=== PATIENT | female | born 1955 | race Two or more races ===

== ENCOUNTER 2018-11-09 17:31 | Emergency (ER) | payer BC ==
--- OUTSIDE RECORDS SUMMARY | 2018-11-09 17:36 | XMS REPORT | Continuity of Care Document ---
:1955 External Reference #:[id number] Author Name JacoboNorman ramirez Care Team Providers Name Role Phone Sandra De La Cruz MD Primary Care Physician Unavailable Payers Type Date Identification Numbers Payment Provider Subscriber Effective: 2015 Policy Number: [id number] [employer] Chuyita Henry PayID: [id number] [address] [address] [place] [phone] Effective: 2013 Policy Number: [id number] [employer] Chuyita Henry Expires: 2015 PayID: [id number] [address] [address] [place] [address] Effective: 2011 Policy Number: [id number] [employer] Chuyita Henry Expires: 2013 PayID: [id number] [address] [address] [place] [address] Expires: 2011 Policy Number: [id number] [employer] Chuyita Henry Group Name: Ppo [address] [address] PayID: [id number] [place] [phone] Effective: 2015 Policy Number: [id number] [employer] Rhan Henry Expires: 2015 PayID: [id number] [address] [address] [place] [address] Advance Directives Description No Information Available Problems Date Description Provider Status Onset: 07/26/2011 Iron deficiency anemia Emperatriz Chu N.P. Active Family History Date Family Member(s) Problem(s) Comments : (age 74 Father due to Stomach Years) Cancer : (age 72 Mother due to CHF HTN, Vascular Disease Years) Children 3 1 Son - Healthy age 30 1 Daughter - Healthy age 30 1 Daughter - Healthy age 24 Siblings 8 3 Brothers - Healthy 1 Brother - Multiple Myeloma (53), age 56 3 Sisters - Healthy 1 Sister - DVT, PE, negative clotting disorder work up Social History Type Date Description Comments Sex Unknown Marital Status Occupation Homemaker ETOH Use Currently consumes 0 - 1 per week alcohol Tobacco Use Start: Unknown Patient has never smoked Smoking Status Reviewed: 10/24/18 Patient has never smoked Exercise Type/Frequency Exercises regularly 5 days per week Allergies, Adverse Reactions, Alerts Date Description Reaction Status Severity Comments 07/26/2011 Aspirin upset stomach Active Moderate 07/26/2011 Levaquin sleeplessness,nausea Active Moderate 01/10/2012 Entex rash and itchy Active Moderate Medications Medication Date Status Form Strength Qnty SIG Indications Ordering Provider Tylenol Extra 06/23 Active Tablets 500mg 100ta 2 by mouth bs as needed Varn, N.P. Valtrex 12/31 Active Tablets 1gm 21tab take two B00.2 s tablets by Varn, mouth twice N.P. a day as needed Triamcinolone 11/08 Active Cream 0.1% 15gm apply thin R21 Neri Acetonide film twice Sage, RADIATOR REPAIRER daily Ventolin HFA 11/11 Active Aerosol 108(90Bas 1inha 1 to 2 J45.909 e) ler inhalations Varn, mcg/Act every 4 N.P. hours as needed Mariama 01/09 Active Tablets 180mg 30tab 1 po qd Z00.00 Oralia talia Anderson M.D., [facility] Sudafed 0000 Active as needed Unknown /0000 Afrin 12 Hour 00/00 Active Solution 0.05% 2-3 sprays Unknown /0000 both nares every 12 hours as needed Nasacort 0000 Active Aerosol 55mcg/Act 1 spray both Unknown Allergy 24HR /0000 nares once daily Azithromycin 09/08 Hx Tablets 250mg 6tabs two tabs day J01.00 one, one Varn, - daily till N.P. 09/18 Benzonatate 09/08 Hx Capsules 100mg 30cap one by mouth J01. s three times Varn, - daily as N.P. 09/22 needed for cough Azithromycin 06/23 Hx Tablets 250mg 6tabs two tabs day J20.9 one, one Varn, - daily till N.P. 07/03 Benzonatate 06/23 Hx Capsules 100mg 30cap one by mouth J20.9 s three times Varn, - daily as N.P. 07/03 needed for cough Fluconazole 03/09 Hx Tablets 100mg 6tabs 3 tablets by B36.1 mouth and Varn, - repeat in 1 N.P. Azithromycin 12/31 Hx Tablets 250mg 6tabs two tabs day J01.00 one, one Varn, - daily till N.P. 01/09 Azithromycin 11/08 Hx Tablets 250mg 6tabs 2 tabs by J01.90 Neri mouth every Sage, RADIATOR REPAIRER - day x1 day, 11/15 1 tab by mouth every day x 4 days [id number] DS 04/09 Hx Tablets 800-160mg 14tab 1 tab by s mouth twice Portillo, RADIATOR REPAIRER - a day x 7 Doxycycline 03/25 Hx Capsules 100mg 20cap one tablet Neri s twice daily Sage, RADIATOR REPAIRER - for 10 days. 04/04 Ceftibuten 03/24 Hx Capsules 400mg 10cap 1 capsule 461.9 Neri s once daily x Sage, RADIATOR REPAIRER - 10 days 03/25 Benzonatate 03/17 Hx Capsules 100mg 30cap one by mouth 466.0 Emperatriz /2015 s three times Varn, - daily as N.P. 03/24 needed for cough Azithromycin 03/17 Hx Tablets 250mg 6tabs two tabs day 466.0 one, one Varn, - daily till N.P. 03/24 Azithromycin 07/27 Hx Tablets 250mg 6tabs two tabs day 461.9 Neri one, one Sage, RADIATOR REPAIRER - daily until 08/04 Benzonatate 07/27 Hx Capsules 100mg 30cap one by mouth 461.9 Neri s three times Sage, RADIATOR REPAIRER - daily as 08/04 needed for /2014 cough Denavir 05/14 Hx Cream 1% 30.0u apply three 054.79 nits times daily Varn, - as needed N.P. 03/17 Azithromycin 05/14 Hx Tablets 250mg 6tabs two tabs day 461.9 one, one Varn, - daily until N.P. 05/24 gone Benzonatate 05/14 Hx Capsules 100mg 30cap one by mouth 461.9 s three times Varn, - daily as N.P. 05/28 needed cough Triamcinolone 02/16 Hx Cream 0.1% 30gm apply twice 709.9 Acetonide a day until Varn, - clear N.P. 04/06 Fluticasone 02/09 Hx Suspension 50mcg/Act 16gm 1 inhalation Propionate in each Varn, - nostril, N.P. 09/08 once daily Veramyst 02/06 Hx Suspension 27.5mcg/S 10gm 1 sprays 477.9 pray each nostril Varn, - daily N.P. 02/09 Valtrex 02/06 Hx Tablets 1gm 21tab take two 054.2 s tablets by Varn, - mouth twice N.P. 12/31 a day needed Fluticasone 11/13 Hx Suspension 50mcg/Act 16gm 2 sprays Propionate each nostril Varn, - daily as N.P. 02/06 needed Meclizine HCL 02/03 Hx Tablets 25mg 30tab 1 tablet 386.11 s daily as Varn, - needed N.P. 02/17 Doxycycline 12/23 Hx Capsules 100mg 14cap 1 po bid 682.0 Oralia Monohydrate Gloria Bingham M.D., 12/23 Doxycycline 12/23 Hx Capsules 100mg 14cap bid po 682.0 Oralia Hyclate Gloria Bingham M.D., 02/03 Azithromycin 10/01 Hx Tablets 250mg 6tabs two tabs day 461.9 one, one Varn, - daily till N.P. 10/11 Benzonatate 10/01 Hx Capsules 200mg 30cap one by mouth 461.9 s three times Varn, - daily as N.P. 10/15 needed cough Ventolin HFA 01/09 Hx Aerosol 108(90Bas 1inha 1 to 2 493.90 e) mcg/ac ler inhalations Monica, - every 4 M.D., 11/11 hours as FACP needed Veramyst Hx Suspension 27.5mcg/S 1mon two sprays Oralia / pray in each Monica, - nostril M.D., 02/06 daily. FAC Ipratropium Hx Solution 0.06% 3unit 1 spray to Unknown [place] /0000 s each nostril - twice daily 02/06 Benzonatate Hx Capsules 200mg 30cap take 1 Unknown /0000 s capsule by - mouth three 07/26 times a day /2010 Mariama Allergy 00 Hx Tablets 60mg bid prn po Unknown /0000 - 02/06 Immunizations CPT Code Status Date Vaccine Lot # [id number] Given 08/24/2018 Influenza Virus Vaccine, Quadrivalent, Split, Preservative Free Q2039 Given 08/12/2016 Flu Vaccine NOS Q2039 Given 08/20/2015 Flu Vaccine NOS 51855 Given 08/22/2014 Flu Vaccine Split Virus Preservative Free For Indiv 3Yr Older Q2037 Given 08/30/2013 Fluvirin Im 3Yrs And Older 87464 Given 09/09/2011 Influenza Virus 3Yrs & Over 44619 Given 11/30/2010 Hepatitis B Vaccine Adult Dosage 46364 Given 11/30/2010 Hepatitis A Vaccine Adult Dosage 09787 Given 06/29/2010 Hepatitis B Vaccine Adult Dosage 90307 Given 08/12/2009 Influenza Virus 3Yrs & Over 31460 Given 08/08/2006 Influenza Virus 3Yrs & Over 46425 Given 08/08/2006 Influenza Virus 3Yrs & Over Vital Signs Date Vital Result Comment 10/24/2018 11:17am Height 63 inches 5'3" Weight 140.00 lb Heart Rate 100 /min BP Systolic 130 mmHg BP Diastolic 74 mmHg Body Temperature 97.5 F O2 % BldC Oximetry 98 % BMI (Body Mass Index) 24.8 kg/m2 04/19/2018 3:01pm Height 63 inches 5'3" Weight 140.00 lb Heart Rate 90 /min BP Systolic Sitting 130 mmHg BP Diastolic Sitting 76 mmHg O2 % BldC Oximetry 99 % BMI (Body Mass Index) 24.8 kg/m2 08/24/2017 11:24am Weight 140.00 lb Heart Rate 93 /min BP Systolic 128 mmHg BP Diastolic 70 mmHg Body Temperature 98.0 F O2 % BldC Oximetry 98 % 09/08/2016 2:25pm Weight 138.00 lb Heart Rate 82 /min BP Systolic Sitting 132 mmHg BP Diastolic Sitting 67 mmHg Respiratory Rate 16 /min Body Temperature 98.3 F O2 % BldC Oximetry 99 % 06/23/2016 3:58pm Heart Rate 87 /min BP Systolic Sitting 126 mmHg BP Diastolic Sitting 75 mmHg Body Temperature 98.6 F O2 % BldC Oximetry 99 % 06/19/2016 2:21pm Weight 137.00 lb Heart Rate 97 /min BP Systolic Sitting 120 mmHg BP Diastolic Sitting 70 mmHg Body Temperature 97.9 F O2 % BldC Oximetry 99 % 03/09/2016 11:29am Height 61.5 inches 5'1.50" Weight 136.00 lb Heart Rate 94 /min BP Systolic Sitting 128 mmHg BP Diastolic Sitting 80 mmHg Respiratory Rate 15 /min Body Temperature 98.5 F O2 % BldC Oximetry 99 % BMI (Body Mass Index) 25.3 kg/m2 12/31/2015 1:11pm Weight 135.50 lb Heart Rate 90 /min BP Systolic Sitting 118 mmHg BP Diastolic Sitting 57 mmHg Body Temperature 97.2 F O2 % BldC Oximetry 98 % 11/08/2015 11:27am Weight 134.00 lb Heart Rate 104 /min BP Systolic Sitting 118 mmHg BP Diastolic Sitting 84 mmHg Body Temperature 98.2 F O2 % BldC Oximetry 98 % 04/06/2015 9:33am Height 63 inches 5'3" Weight 138.50 lb Heart Rate 111 /min BP Systolic Sitting 114 mmHg BP Diastolic Sitting 72 mmHg Body Temperature 97.8 F O2 % BldC Oximetry 98 % BMI (Body Mass Index) 24.5 kg/m2 03/24/2015 3:31pm Height 63 inches 5'3" Weight 138.00 lb Heart Rate 83 /min BP Systolic 122 mmHg BP Diastolic 68 mmHg Body Temperature 98.5 F BMI (Body Mass Index) 24.4 kg/m2 03/17/2015 4:32pm Weight 138.00 lb Heart Rate 86 /min BP Systolic Sitting 125 mmHg BP Diastolic Sitting 70 mmHg Body Temperature 97.9 F O2 % BldC Oximetry 97 % 07/27/2014 2:00pm Height 63 inches 5'3" Weight 138.00 lb Heart Rate 94 /min BP Systolic Sitting 130 mmHg BP Diastolic Sitting 70 mmHg Body Temperature 98.4 F O2 % BldC Oximetry 99 % BMI (Body Mass Index) 24.4 kg/m2 05/14/2014 10:27am Height 63 inches 5'3" Weight 135.00 lb Heart Rate 91 /min BP Systolic Sitting 112 mmHg BP Diastolic Sitting 68 mmHg Body Temperature 98.0 F O2 % BldC Oximetry 98 % BMI (Body Mass Index) 23.9 kg/m2 02/16/2014 8:45am Weight 136.75 lb Heart Rate 88 /min BP Systolic 126 mmHg BP Diastolic 64 mmHg Respiratory Rate 16 /min Body Temperature 97.8 F 02/06/2014 11:01am Height 62.75 inches 5'2.75" Weight 137.00 lb Heart Rate 94 /min BP Systolic Sitting 124 mmHg BP Diastolic Sitting 78 mmHg Respiratory Rate 15 /min BMI (Body Mass Index) 24.5 kg/m2 02/03/2013 4:03pm Height 62.5 inches 5'2.50" Weight 139.00 lb Heart Rate 78 /min BP Systolic Sitting 124 mmHg BP Diastolic Sitting 68 mmHg Body Temperature 98.3 F BMI (Body Mass Index) 25.0 kg/m2 12/23/2012 10:04am Height 62.5 inches 5'2.50" Weight 138.00 lb Heart Rate 90 /min Body Temperature 98.3 F Tympanically BMI (Body Mass Index) 24.8 kg/m2 10/01/2012 2:24pm Height 62.5 inches 5'2.50" Weight 139.00 lb Heart Rate 82 /min BP Systolic Sitting 124 mmHg BP Diastolic Sitting 76 mmHg Body Temperature 98.6 F BMI (Body Mass Index) 25.0 kg/m2 01/10/2012 10:55am Height 62.5 inches 5'2.50" Weight 141.00 lb Heart Rate 84 /min BP Systolic Sitting 140 mmHg BP Diastolic Sitting 76 mmHg BMI (Body Mass Index) 25.4 kg/m2 11/24/2011 10:57am Height 62.5 inches 5'2.50" Weight 141.00 lb Heart Rate 74 /min BP Systolic Sitting 122 mmHg BP Diastolic Sitting 68 mmHg BMI (Body Mass Index) 25.4 kg/m2 07/26/2011 2:15pm Height 62.5 inches 5'2.50" Weight 141.00 lb Heart Rate 70 /min BP Systolic Sitting 134 mmHg BP Diastolic Sitting 82 mmHg BMI (Body Mass Index) 25.4 kg/m2 01/02/2011 2:36pm Weight 138.00 lb Heart Rate 84 /min BP Systolic 116 mmHg BP Diastolic 70 mmHg Body Temperature 98.5 F Results Test Date Facility Test Result H/L Range Note Laboratory test 10/24/2018 [facility] Cytology <pending> finding [address] [place] [address] [phone] Urine Culture And 04/19/2018 [facility] Urine Culture SEE RESULT [address] [place] [address] [phone] Ua Routine 04/19/2018 [facility] Ua Specific [address] [place] Ua PH 7 Ua Color yellow Ua Appera clear Ua WBC neg Ua Protein neg Ua Glucose neg Ua Ketones neg Ua Bilirubin neg Ua Urobilinogen neg Ua Nitrite neg Ua Occult Blood neg Comp Metabolic Panel 09/18/2017 [facility] Sodium 137 mmol/L N [address] [place] [address] [phone] Potassium 4.6 mmol/L N 3.5-5.0 Chloride 102 mmol/L N 101-111 Co2 Carbon Dioxide 27 mmol/L N 22-32 Anion Gap 8 mmol/L N 2-11 Glucose 96 mg/dL N 70-100 Blood Urea Nitrogen 18 mg/dL N 6-24 Creatinine 0.84 mg/dL N 0.51-0.95 BUN/Creatinine Ratio 21.4 High 8-20 Calcium 9.3 mg/dL N 8.6-10.3 Total Protein 6.8 g/dL N 6.4-8.9 Albumin 4.3 g/dL N 3.2-5.2 Globulin 2.5 g/dL N 2-4 Albumin/Globulin Ratio 1.7 N 1-3 Total Bilirubin 0.80 mg/dL N 0.2-1.0 Alkaline Phosphatase 82 U/L N 34-104 Alt 22 U/L N 7-52 Ast 22 U/L N 13-39 Egfr Non- 69.2 >60 Egfr 88.9 >60 2 Lipid Profile 09/18/2017 [facility] Triglycerides 76 mg/dL 3 (Trig/Chol/HDL) [address] [place] [address] [phone] Cholesterol 210 mg/dL 4 HDL Cholesterol 91.0 mg/dL 5 LDL Cholesterol 104 mg/dL 6 Laboratory test 09/18/2017 [facility] TSH (Thyroid 1.28 mcIU/mL N 0.34-5.60 7 finding [facility] Stim [place]orm) [place] [address] [phone] Laboratory test 06/19/2016 [facility] Rapid Group A neg finding Strep Laboratory test 03/09/2016 [facility] TSH (Thyroid 0.88 ?IU/mL N 0.34-5.60 finding [facility] [address] [place]) [place] [address] [phone] Rheumatoid Factor <15 IU/mL N <15 8 Cyclic Citrullinated Pep Igg <15.6 U N 9 Comp Metabolic Panel 02/17/2016 [facility] Sodium 138 mmol/L N 133-145 [address] [place] [address] [phone] Potassium 4.2 mmol/L N 3.5-5.0 Chloride 103 mmol/L N 101-111 Co2 Carbon Dioxide 28 mmol/L N 22-32 Anion Gap 7 mmol/L N 2-11 Glucose 90 mg/dL N 70-100 Blood Urea Nitrogen 15 mg/dL N 6-24 Creatinine 0.79 mg/dL N 0.51-0.95 BUN/Creatinine Ratio 19.0 N 8-20 Calcium 8.9 mg/dL N 8.6-10.3 Total Protein 6.4 g/dL N 6.4-8.9 Albumin 4.1 g/dL N 3.2-5.2 Globulin 2.3 g/dL N 2-4 Albumin/Globulin Ratio 1.8 N 1-3 Total Bilirubin 0.70 mg/dL N 0.2-1.0 Alkaline Phosphatase 86 U/L N 34-104 Alt 18 U/L N 7-52 Ast 20 U/L N 13-39 Egfr Non- 74.7 N >60 Egfr 96.1 N >60 10 Lipid Profile 02/17/2016 [facility] Triglycerides 57 mg/dL N 11 (Trig/Chol/HDL) [address] [place] [address] [phone] Cholesterol 193 mg/dL N 12 HDL Cholesterol 84.3 mg/dL N 13 LDL Cholesterol 97 mg/dL N 14 CBC Auto Diff 02/17/2016 [facility] White Blood 3.8 10^3/uL N 3.5-10.[address] [place] [address] [phone] Red Blood Count 4.95 10^6/uL N 4.0-5.4 Hemoglobin 13.7 g/dL N 12.0-16.0 Hematocrit 42 % N 35-47 Mean Corpuscular Volume 85 fL N 80-97 Mean Corpuscular Hemoglobin 28 pg N 27-31 Mean Corpuscular HGB Conc 33 g/dL N 31-36 Red Cell Distribution Width 12 % N 10.5-15 Platelet Count 218 10^3/uL N 150-450 Mean Platelet Volume 8 um3 N 7.4-10.4 Abs Neutrophils 2.0 10^3/uL N 1.5-7.7 Abs Lymphocytes 1.4 10^3/uL N 1.0-4.8 Abs Monocytes 0.3 10^3/uL N 0-0.8 Abs Eosinophils 0.1 10^3/uL N 0-0.6 Abs Basophils 0 10^3/uL N 0-0.2 Abs Nucleated RBC 0 10^3/uL N Granulocyte % 51.9 % N 38-83 Lymphocyte % 36.4 % N 25-47 Monocyte % 8.7 % N 1-9 Eosinophil % 2.4 % N 0-6 Basophil % 0.6 % N 0-2 Nucleated Red Blood Cells % 0.1 N Urinalysis Profile 04/12/2015 Urine Color Yellow N Urine Appearance Cloudy N Urine Specific [place] 1.015 N 1.010-1.030 Urine pH 6.0 N 5-9 Urine Urobilinogen Negative N Negative Urine Ketones Negative N Negative Urine Protein 1+(30 mg/dL) Abnormal Negative Urine Leukocytes Negative N Negative Urine Blood 3+ Abnormal Negative Urine Nitrite Negative N Negative Urine Bilirubin Negative N Negative Urine Glucose Negative N Negative Urine White Blood Cell 1+(6-10/hpf) Abnormal Absent Urine Red Blood Cell 3+(>10/hpf) Abnormal Absent Urine Bacteria Absent N Absent Urine Squamous Epithelial Cell Present Abnormal Absent Urinalysis Profile 04/08/2015 [facility] Urine Color Yellow N [address] [place] [address] [phone] Urine Appearance Clear N Urine Specific [place] 1.012 N 1.010-1.030 Urine pH 6.0 N 5-9 Urine Urobilinogen Negative N Negative Urine Ketones Negative N Negative Urine Protein Negative N Negative Urine Leukocytes Negative N Negative Urine Blood 2+ Abnormal Negative Urine Nitrite Negative N Negative Urine Bilirubin Negative N Negative Urine Glucose Negative N Negative Urine White Blood Cell Trace(0-5/hpf) N Absent Urine Red Blood Cell 3+(>10/hpf) Abnormal Absent Urine Bacteria Absent N Absent Urine Squamous Epithelial Cell Present Abnormal Absent Ua Routine 04/06/2015 [facility] Ua Specific [place] 1.010 Ua PH 5 Ua Color yellow Ua Appera clear Ua WBC neg Ua Protein trace Ua Glucose neg Ua Ketones neg Ua Bilirubin neg Ua Urobilinogen neg Ua Nitrite neg Ua Occult Blood positive Laboratory test 04/06/2015 [facility] Urine Culture And SEE RESULT [address] [place] [address] [phone] Urinalysis 04/06/2015 [facility] Urine Color Yellow N Profile [address] [place] [address] [phone] Urine Appearance Clear N Urine Specific [place] 1.006 Low 1.010-1.030 Urine pH 6.0 N 5-9 Urine Urobilinogen Negative N Negative Urine Ketones Negative N Negative Urine Protein Negative N Negative Urine Leukocytes Negative N Negative Urine Blood 3+ Abnormal Negative Urine Nitrite Negative N Negative Urine Bilirubin Negative N Negative Urine Glucose Negative N Negative Urine White Blood Cell Absent N Absent Urine Red Blood Cell 3+(>10/hpf) Abnormal Absent Urine Bacteria Absent N Absent Urine Squamous Epithelial Cell Present Abnormal Absent Laboratory test finding 02/20/2014 Ferritin 32.6 ng/mL N 11-307 16 TSH (Thyroid Stimulating Horm) 1.05 IU/mL N 0.34-5.60 Hepatitis C Antibody Nonreactive N Nonreactive 17 CBC With Manual Diff 02/20/2014 White Blood Count 4.4 10^3/uL Low 4.8- 10.8 Red Blood Count 4.98 10^6/uL N 4.0-5.4 Hemoglobin 13.9 g/dL N 12.0-16.0 Hematocrit 41 % N 35-47 Mean Corpuscular Volume 82 fL N 80-97 Mean Corpuscular Hemoglobin 28 pg N 27-31 Mean Corpuscular HGB Conc 34 g/dL N 31-36 Red Cell Distribution Width 13 % N 10.5-15 Platelet Count 198 10^3/uL N 150-450 Mean Platelet Volume 8 um3 N 7.4-10.4 Abs Neutrophils 2.4 10^3/uL N 1.5-7.7 Abs Lymphocytes 1.6 10^3/uL N 1.0-4.8 Abs Monocytes 0.4 10^3/uL N 0-0.8 Abs Eosinophils 0.1 10^3/uL N 0-0.6 Abs Basophils 0 10^3/uL N 0-0.2 Abs Nucleated RBC 0.01 10^3/uL N Neutrophil % 56 % N 38-83 Lymphocytes % 30 % N 25-47 Monocytes % 7 % N 0-13 Eosinophils % 1 % N 0-6 Reactive Lymph % 6 % N 0-6 RBC Morphology Normal N Normal Lipid Profile (Trig/Chol/HDL) 02/20/2014 Triglycerides 66 mg/dL N 18 Cholesterol 194 mg/dL N 19 HDL Cholesterol 75.4 mg/dL N 20 LDL Cholesterol 105 mg/dL N 21 Comp Metabolic Panel 02/20/2014 Sodium 139 mmol/L N 133-145 Potassium 4.2 mmol/L N 3.7-5.6 Chloride 104 mmol/L N 101-111 Co2 Carbon Dioxide 28 mmol/L N 22-32 Anion Gap 7 mmol/L N 2-11 Glucose 92 mg/dL N 70-100 Blood Urea Nitrogen 13 mg/dL N 6-24 Creatinine 0.80 mg/dL N 0.51-0.95 BUN/Creatinine Ratio 16.3 N 8-20 Calcium 9.0 mg/dL N 8.6-10.3 Total Protein 6.6 g/dL N 6.4-8.9 Albumin 4.3 g/dL N 3.2-5.2 Globulin 2.3 g/dL N 2-4 Albumin/Globulin Ratio 1.9 N 1-3 Total Bilirubin 0.70 mg/dL N 0.2-1.0 Alkaline Phosphatase 94 U/L N 34-104 Alt 17 U/L N 7-52 Ast 19 U/L N 13-39 Egfr Non- 74.2 N >60 Egfr 95.4 N >60 22 HPV High 02/06/2014 [facility] Human Papillomavirus See Comment N [address] [place] [address] [phone] HPV High Risk Type 16, PCR Negative N Negative HPV High Risk Type 18, PCR Negative N Negative HPV Other Risk types Negative N Negative 24 Laboratory test 02/06/2014 [facility] Cytology RUN DATE: [address] 02/09/ <[place] [address] NOTE> [phone] Laboratory test 01/26/2012 [facility] TSH 1.08 MIU/ML 0.34-[address] [place] [address] [phone] Lipid Profile 01/26/2012 [facility] Triglyceride 55 mg/dL 40- 200 (Trig/Chol/HDL) [address] [place], [place] [id number] [phone] Cholesterol 198 mg/dL Less Than 200 27 High Density Lipoprotein 80 mg/dL High 40-60 28 Cholesterol/HDL Ratio 2.48 AVERAGE 1-4.44 Low Density Lipoprotein 107 mg/dL High Less Than 100 29 Comp Metabolic Panel 01/26/2012 [facility] Sodium 138 mmol/L 135-[address] [place] [address] [phone] Potassium 4.8 mmol/L 3.5-5.0 Chloride 105 mmol/L 101-111 Co2 (Carbon Dioxide) 28.0 mmol/L 22-32 Anion Gap 5.0 mmol/L 2-11 30 Glucose 91 mg/dL 70-100 BUN 13 mg/dL 6-24 Creatinine 0.9 mg/dL 0.50-1.40 One Over Creatinine 1.11 BUN/Creatinine Ratio 14.4 8-20 Calcium 8.8 mg/dL 8.1-9.9 Total Protein 6.4 GM/DL 6.2-8.1 Albumin 3.8 GM/DL 3.6-5.4 Globulin 2.6 GM/DL 2-4 Albumin/Globulin Ratio 1.5 1-3 Bilirubin Total 0.9 mg/dL 0.4-1.5 31 Alkaline Phosphatase 87 U/L 30-110 Alt (SGPT) 17 U/L 14-54 Ast (Sgot) 17 U/L 12-42 eGFR Non- 65.2 > 60 eGFR 83.9 > 60 32 Laboratory test 01/10/2012 [facility] Cytology <SEE [address] NOTE> [place] [id number] [phone] 1 SEE RESULT BELOW Name: GLENYS OCHOA : [address]: Emperatriz Chu NP Acct: [id number] Unit: [id number] AGE: 62 Location: [facility] Re04/19/18 SEX: F Status: REG REF SPEC: [id number] ALEXANDER: 04/19/18-1546 [facility] DR: Emperatriz Chu NP REQ: [id number] RECD: 04/19/18 STATUS: COMP _ SOURCE: URINE SPDESC: ORDERED: Urine Culture COMMENTS: [id number] Urine Source: Random Procedure Result Reported Site Urine Culture Final 04/21/18- 09 ML No Growth (<1,000 CFU/mL) * ML - Main Lab . END OF REPORT DEPARTMENT OF PATHOLOGY, [address] [place] [address] Caio Briseno M.D. Director [facility] # [id number] 2 Because ethnic data is not always readily available, this report includes an eGFR for both -Americans and non- Americans. The National Kidney Disease Education Program (NKDEP) does not endorse the use of the MDRD equation for patients that are not between the ages of 18 and 70, are , have extremes of body size, muscle mass, or nutritional status, or are non- or non-. According to the National Kidney Foundation, irrespective of diagnosis, the stage of the disease is based on the level of kidney function: Stage Description GFR(mL/min/1.73 m(2)) 1 Kidney damage with normal or decreased GFR 90 2 Kidney damage with mild decrease in GFR 60-89 3 Moderate decrease in GFR 30-59 4 Severe decrease in GFR 15-29 5 Kidney failure <15 (or dialysis) 3 Desirable: <150 Borderline High: 150-199 High: 200-499 Very High: >500 4 Desirable: <200 Borderline High: 200-239 High: >239 5 Low: <40 Desirable: 40-60 High: >60 6 Desirable: <100 Near Optimal: 100-129 Borderline High: 130-159 High: 160-189 Very High: >189 7 FASTING 10 HOUR 8 Test Performed by: [place] [address] Bioinformatics Team Member: Tony Chaney II, M.D., Ph.D. 9 REFERENCE VALUE <20.0 (Negative) Test Performed by: [place] [address] Bioinformatics Team Member: Tony Chaney II, M.D., Ph.D. 10 Because ethnic data is not always readily available, this report includes an eGFR for both -Americans and non- Americans. The National Kidney Disease Education Program (NKDEP) does not endorse the use of the MDRD equation for patients that are not between the ages of 18 and 70, are , have extremes of body size, muscle mass, or nutritional status, or are non- or non-. According to the National Kidney Foundation, irrespective of diagnosis, the stage of the disease is based on the level of kidney function: Stage Description GFR(mL/min/1.73 m(2)) 1 Kidney damage with normal or decreased GFR 90 2 Kidney damage with mild decrease in GFR 60-89 3 Moderate decrease in GFR 30-59 4 Severe decrease in GFR 15-29 5 Kidney failure <15 (or dialysis) 11 Desirable <150 Borderline high 150-199 High 200-499 Very High >500 12 Desirable <200 Borderline high 200-239 High >239 13 Low <40 Desirable: 40-60 High: >60 14 Desirable: <100 mg/dL Near Optimal: 100-129 mg/dL Borderline High: 130-159 mg/dL High: 160-189 mg/dL Very High: >189 mg/dL 15 SEE RESULT BELOW Name: GLENYS OCHOA : [address]: Nishant Portillo NP Acct: [id number] Unit: [id number] AGE: 59 Location: [facility] Re04/06/15 SEX: F Status: REG REF SPEC: [id number] ALEXANDER: 04/06/15-[address]: Nishant Portillo NP REQ: [id number] RECD: 04/06/15 STATUS: COMP _ SOURCE: URINE SPDESC: ORDERED: Urine Culture Procedure Result Verified Site Urine Culture Final 04/08/15- 0935 ML No Growth Day 2 (<1,000 CFU/mL) * ML - MAIN LAB ([facility]) . END OF REPORT * ML=Testing performed at Main Lab DEPARTMENT OF PATHOLOGY, [address] [place] [address] Caio Briseno M.D. Director [facility] # [id number] 16 PT IS FASTING 17 PT IS FASTING 18 Desirable <150 Borderline high 150-199 High 200-499 Very High >500 19 Desirable <200 Borderline high 200-239 High >239 20 Low <40 Desirable: 40-60 High: >60 21 Desirable <100 Near Optimal 100-129 Borderline high 130-159 High 160-189 Very High >189 22 Because ethnic data is not always readily available, this report includes an eGFR for both -Americans and non- Americans. The National Kidney Disease Education Program (NKDEP) does not endorse the use of the MDRD equation for patients that are not between the ages of 18 and 70, are , have extremes of body size, muscle mass, or nutritional status, or are non- or non-. According to the National Kidney Foundation, irrespective of diagnosis, the stage of the disease is based on the level of kidney function: Stage Description GFR(mL/min/1.73 m(2)) 1 Kidney damage with normal or decreased GFR 90 2 Kidney damage with mild decrease in GFR 60-89 3 Moderate decrease in GFR 30-59 4 Severe decrease in GFR 15-29 5 Kidney failure <15 (or dialysis) 23 RESULT: Ectocervical/Endocervical 24 The following Other High Risk HPV types were not detected: 31, 33, 35, 39, 45, 51, 52, 56, 58, 59, 66, and 68 Test Performed by: [address] [address] Bioinformatics Team Member: Walter Aparicio III, M.D. 25 RUN DATE: 02/09/14 [facility] LAB LIVE PAGE 1 RUN TIME: [address] [place], [place] [address] Specimen Inquiry Name: GLENYS OCHOA : [address]: Emperatriz Chu NP Acct: [id number] Unit: [id number] AGE: 58 Location: [facility] Re02/06/14 SEX: F Status: REG REF SPEC: [id number] ALEXANDER: 02/06/14-[address]: Emperatriz Chu NP REQ: [id number] RECD: 02/06/14-1633 STATUS: SOUT _ ORDERED: IMAGE ANALYSIS, HPV/Thin Prep FINAL DIAGNOSIS Negative for Intraepithelial lesion or Malignancy COMMENTS: Specimen sent to [facility] in [place], [place] on 02/09/14 by [id number] at 1219. Results will be reported separately. A. Ectocervical/Endocervical Specimen Adequacy: Satisfactory of evaluation Transformation zone component cannot be definitely identified due to presence of atrophy or other hormonal changes Patient Information: HPV: High risk HPV DNA testing regardless of pap results. Actual Specimen Date: 02/06/14 LMP If Unknown: 2011 Cautery: N IUD: N ?: N Post Menopausal?: Y Hysterectomy?: N Previous Abnormal Pap Smears?:N Signed (signature on file) Shirlene KRIS Mora (ASCP) 02/09/14 1232 This Pap test was evaluated with the assistance of the AudiencePointPrep Test Imaging System. Due to cytologic findings at the honey producer microscope, comprehensive manual rescreening by a Process Development Chemist may be required. The Pap Smear is a screening test designed to aid in the detection of premalignant and malignant conditions of the uterine cervix. It is not a diagnostic procedure and should not be used as the sole means of detecting cervical cancer. Both false- positive and false- negative reports do occur. Depending on your risk status, a Pap smear shoudl be obtained and evaluated every 1-3 years. END OF REPORT * ML=Testing performed at Main Lab DEPARTMENT OF PATHOLOGY, [address] [place] [address] Caio Briseno M.D. Director [facility] Permit #[id number] FASTING 27 CHOLESTEROL INTERPRETATION: Desirable: Less than 200 MG/DL Borderline-High Risk: 200-239 MG/DL High-Risk: 240 MG/DL and over 28 HDL INTERPRETATION: Undesirable: High Risk: Less than 40 MG/DL Desirable: Low Risk: Greater than 60 MG/DL 29 LDL INTERPRETATION: Low Risk Optimal Level: LDL Less than 100 MG/DL Near or Above Optimal: LDL 100-129 MG/DL Borderline High Risk: LDL 130-159 MG/DL High Risk: LDL 160-189 MG/DL Very High Risk: LDL Greater than 189 MG/DL 30 Anion gap measurement may be of limited value in the presence of any alkalosis, especially in a combined acid base disorder. . 31 A metabolite of Naproxen, O-desmethylnaproxen, has been shown to interfere with the Jendrassik-Anibal method for measuring total bilirubin. Samples from patients who have taken Naproxen have shown spurious elevation in total bilirubin levels. 32 Because ethnic data is not always readily available, this report includes an eGFR for both -Americans and non- Americans. The National Kidney Disease Education Program (NKDEP) does not endorse the use of the MDRD equation for patients that are not between the ages of 18 and 70, are , have extremes of body size, muscle mass, or nutritional status, or are non- or non-. According to the National Kidney Foundation, irrespective of diagnosis, the stage of the disease is based on the level of kidney function: Stage Description GFR(mL/min/1.73 m(2)) 1 Kidney damage with normal or decreased GFR 90 2 Kidney damage with mild decrease in GFR 60-89 3 Moderate decrease in GFR 30-59 4 Severe decrease in GFR 15-29 5 Kidney failure <15 (or dialysis) 33 ---- RUN DATE: 01/11/12 [facility] NMI LIVE PAGE 1 RUN TIME: 1524 Specimen Inquiry RUN USER: INTERFACE -- Name: GLENYS OCHOA Status: REG REF Re01/10/12 Age/Sex: 56/F Unit#: [id number] Location: [facility] : 59 -- Specimen: [id number] SOUT Spec Date:01/10/12-[address]: Emperatriz Chu [facility] Spec Type: CYTOLOGY Received:01/11/12-1015 Copies to: SOURCE ECTOCERVICAL/ENDOCERVICAL Thin Prep with Reflex HPV Test PATIENT INFORMATION ACTUAL COLLECTION DATE: 01/10/12 ? No POST MENOPAUSAL? No HYSTERECTOMY? No PREVIOUS ABNORMAL PAP SMEARS No PATIENT HISTORY: Last menstrual period 08/2011 ADEQUACY OF SPECIMEN Satisfactory for evaluation * Transformation zone component identified * DIAGNOSIS NEGATIVE FOR INTRAEPITHELIAL LESION OR MALIGNANCY * This Pap test was evaluated with the assistance of the AudiencePointPrep Pap Test Imaging System. The Pap Smear is a screening test designed to aid in the detection of premalign ant and malignant conditions of the uterine cervix. It is not a diagnostic procedure a nd should not be used as the sole means of detecting cervical cancer. Both false- positiv e and false-negative reports do occur. Depending on your risk status, a Pap smear nicolette uld be obtained and evaluated every one to three years. Initial evaluation performed by Marina WOLFE(ASCP) 01/11/12 Final Interpretation electronically signed by: Marina WOLFE(ASCP) 01/11/12 1521 -- -- DEPARTMENT OF PATHOLOGY, [address] [place] [address] [facility] Permit #[id number] Caio Briseno M.D. Director Angel Levy M.D. Track Welder Dir ar -- Procedures Date Code Description Status 10/08/2018 [id number] Mammogram Completed 09/13/2017 79333 Holter Monitor Review (24 hr)dr review & interp only Completed 09/11/2017 21280 ECG Monitor/Recording W/Visual Superimposition Scanning Completed 08/24/2017 70289 EKG Tracing & Interpretation Completed 08/21/2017 [id number] Mammogram Completed 04/18/2016 [id number] Mammogram Completed 02/18/201402730178 Mammogram Completed 02/16/2014 18357 Removal Skin Tags Up To 15 Completed 02/09/2014 13031 ECHO Transthorasic Realtime 2D W Doppler & Color Flow Completed Hosp 07/22/2012 [id number] Mammogram Completed 01/10/2012 04918 EKG Tracing & Interpretation Completed 07/19/2011 [id number] Mammogram Completed 09/23/2010 18340102 Colonoscopy Completed 06/20/201034320796 Mammogram Completed 04/27/2010 13051 Biopsy Cervix, Single Or Multiple, Or Local Excision Of Completed Lesion 03/15/2009 86352 EKG Tracing & Interpretation Completed 03/12/2007 84758 Endometrial Sampling W Or W/O Endocervical BX W Or W/O Completed Cerv Dilat 03/12/2007 16530 Endometrial Sampling W Or W/O Endocervical BX W Or W/O Completed Cerv Dilat Encounters Type Date Location Provider Dx Diagnosis Office Visit 04/19/2018 [facility] Internal Emperatriz Chu, R10.2 Pelvic and perineal 2:40p Medicine - N.P. pain [place] Office Visit 08/24/2017 [facility] Internal Emperatriz Chu, E16.1 Other hypoglycemia 11:20a Medicine - N.P. [place] R00.2 Palpitations Office Visit 09/08/2016 2:40p [facility] Internal Emperatriz Chu, J01.00 Acute maxillary Medicine - N.P. sinusitis, [place] unspecified R92.8 Oth abn and inconclusive findings on dx imaging of breast Office Visit 06/23/2016 4:00p [facility] Internal Emperatriz Chu, J20.9 Acute bronchitis, Medicine - N.P. unspecified [place] Office Visit 06/19/2016 2:20p [facility] Internal Tavon Mckee J02.9 Acute pharyngitis, Ahmet Shipley M.D. unspecified [place] J06.9 Acute upper respiratory infection, unspecified Office Visit 03/09/2016 11:20a [facility] Internal Emperatriz Chu, Z00.01 Encounter for Medicine - N.P. 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 [place] J01.00 Acute maxillary sinusitis, unspecified M54.2 Cervicalgia Office Visit 11/08/2015 11:20a [facility] Internal Neri Cazares, J01.80 Other acute Medicine - RADIATOR REPAIRER sinusitis [place] R21 Rash and other nonspecific skin eruption Office Visit 04/06/2015 9:30a [facility] Internal Nishant Portillo, 788.69 Urinary Medicine - RADIATOR REPAIRER Abnormaltiy Other [place] 599.70 Hematuria, Unspecified Office Visit 03/24/2015 3:20p [facility] Internal Neri Cazares, 461.9 Sinusitis Acute Medicine - RADIATOR REPAIRER Unspec [place] 461.0 Sinusitis Acute Maxillary Office Visit 03/17/2015 4:20p [facility] Internal Emperatriz Chu, 466.0 Bronchitis Acute Medicine - N.P. 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 Other [place] 461.9 Sinusitis Acute Unspec Office Visit 02/06/2014 11:00a [facility] Internal Emperatriz Chu, V70.0 Examination Medicine - N.P. 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 Unspecified [place] 386.11 Vertigo Benign Paroxysmal Position Office Visit 12/23/2012 10:00a [facility] Internal Oralia Anderson, 682.0 Cellulitis & Medicine - M.D., FACP Abscess Face [place] Office Visit 10/01/2012 2:20p [facility] Internal Emperatriz Chu, 461.9 Sinusitis Acute Medicine - N.P. Unspec [place] Office Visit 01/10/2012 10:40a [facility] Internal Emperatriz Chu, V70.0 Examination Medicine - N.P. General Medical [place] Routine AT Health Care Facility V72.31 Routine Tin Flipper Examination 493.90 Asthma Unspec W/O Status Asthmaticus 477.9 Rhinitis Allergic Cause Unspec 272.4 Hyperlipidemia Other Unspec 427.9 Cardiac Dysrhythmia Unspec Office Visit 11/24/2011 10:40a [facility] Emperatriz Varn, 627.2 Menopausal Or Medicine - N.P. Female Climacteric [place] State, Symptomatic 709.9 Skin & Subcutaneous Tissue Disorders Unspec Office Visit 07/26/2011 DO Not Use Emperatriz Varn, 729.5 Pain In Limb 2:00p Bear Keeper-[place] N.P. Office Visit 01/02/2011 DO Not Use Emperatriz Varn, 466.0 Bronchitis Acute 2:30p [facility]-[place] N.P. Office Visit 03/28/2010 DO Not Use Emperatriz Varn, V72.31 Routine Tin Flipper 10:15a Bear Keeper-[place] N.P. Examination 626.2 Menstruation Excessive Or Frequent Office Visit 02/02/2010 DO Not Use Emperatriz Varn, 461.9 Sinusitis Acute 10:45a Bear Keeper-[place] N.P. Unspec Office Visit 08/12/2009 DO Not Use Oralia Monica, 386.11 Vertigo Benign 10:15a Kasie Gregorio, FACP Paroxysmal Position 280.9 Iron Deficiency Anemia Unspec V04.81 Need For Prophylactic Vaccination & Inoculation/Influenza Office Visit 04/08/2009 10:00a DO Not Use Oraliaelda Anderson, 280.9 Iron Deficiency Kasie Gregorio, FACP Anemia Unspec Office Visit 03/15/2009 10:00a DO Not Use Oralia Monica, V72.31 Routine Tin Flipper Kasie Gregorio, FACP Examination 626.2 Menstruation Excessive Or Frequent 280.9 Iron Deficiency Anemia Unspec 272.4 Hyperlipidemia Other Unspec 785.2 Murmur Cardiac Undiagnosed Office Visit 01/12/2009 10:30a DO Not Use Emperatriz Varn, 461.9 Sinusitis Acute [facility] K[facility]-[place] N.P. Unspec 382.9 Otitis Media Unspec Office Visit 12/14/2008 10:30a DO Not Use Emperatriz Varn, 380.10 Otitis Externa [facility]-[place] N.P. Infective Unspec Office Visit 09/23/2008 11:45a DO Not Use Emperatriz Varn, 461.9 Sinusitis Acute Bear Keeper-[place] N.P. Unspec 463 Tonsillitis Acute Office Visit 06/03/2007 9:45a DO Not Use Oralia Monica, 626.2 [facility]struation [facility] F[facility] Excessive Or Frequent V01.89 Other Communicable Diseases, Contact W/Or Exposure To Office Visit 02/26/2007 DO Not Use Oralia Monica, 626.2 Menstruation 10:45a [facility] FACP Excessive Or Frequent Office Visit 08/08/2006 DO Not Use Emperatriz Chu, 461.9 Sinusitis Acute 11:00a [facility] Unspec Plan of Treatment Future Appointment(s):10/27/2019 1:00 pm - Emperatriz Chu NAngelina at [facility] Internal Medicine - Mtzriggiq74/20/2018 - Emperatriz Chu N.JezZ00.00 Encounter for general adult medical examination without abnoComments:For your routine health maintenance: I encourage you to continue with regular exercise and healthy nutrition. You need to be getting between 1,000 - 1,200 mg of Calcium in daily. The best way to supplement what you get in your diet is to drink Calcium fortified orange juice. If you take a Calcium supplement be sure it has Vitamin D in it to help absorption. Your colonoscopy is up to date. You had this in 2009. Your Tetanus immunization is up to date. You received this in 2009. It is good for 10 years unless you have a major injury, then it is good for 5 years.J45.20 Mild intermittent asthma, uncomplicatedComments:For your asthma: Continue your current management. If at any point you find you need to use your rescue inhaler more than twice weekly on a regular basis, please call the office. This indicates your asthma is not adequately controlled.E78.00 Pure hypercholesterolemia, unspecifiedComments:I have ordered blood work to check your cholesterol. You need to fast for 10 hours prior to getting your blood drawn. I will contact you with your results.Z01.419 Encounter for gynecological examination (general) (routine)Comments:You have had your pap smear today.The office will contact you with the results. If this is normal I will repeat it in 3 years.
[2018-11-09 17:43] VITALS: BP 143/65
[2018-11-09] MEDS ORDERED: Ondansetron ODT TAB* 4 MG PO ONE ×2 (18:30)
--- NOTE | 2018-11-09 18:30 | UC ---
Abdominal Pain Female HPI - HPI Summary HPI Summary: patient c/o 5 days of water stool-spoke with PCP yesterday who suggested a brat diet---some nausea no vomiting---voiding qs no fevers no recent travel, antibiotics or others at home who are ill - History of Current Complaint Chief Complaint: UCGI Stated Complaint: DIARRHEA Time Seen by Provider: 11/09/18 18:21 Hx Obtained From: Patient ?: No Onset/Duration: Sudden Onset, Lasting Days - 5, Still Present Timing: Constant Pain Intensity: 2 Location: Diffuse Radiates: No Character: Cramping Aggravating Factor(s): Nothing Alleviating Factor(s): Nothing Associated Signs and Symptoms: Positive: Nausea, Diarrhea Allergies/Adverse Reactions: Allergies Allergy/AdvReac Type Severity Reaction Status Date / Time guaifenesin [From Entex LA] Allergy Rash Verified 11/09/18 17:45 levofloxacin [From Levaquin] Allergy Rash Verified 11/09/18 17:45 phenylephrine [From Entex LA] Allergy Rash Verified 11/09/18 17:45 phenylpropanolamine Allergy Rash Verified 11/09/18 17:45 [From Entex LA] ciprofloxacin [From Cipro] AdvReac Nausea And Verified 11/09/18 17:45 Vomiting Home Medications: Home Medications Albuterol HFA INHALER* [Ventolin HFA Inhaler*] 2 puff INH Q4H PRN 11/09/18 [ History Confirmed 11/09/18] Multivitamin [Multivitamins] 1 cap PO DAILY 11/09/18 [History Confirmed 11/09/18 ] Triamcinolone NASAL SPRAY* [Nasacort Aq Nasal [place]*] 2 puff NASAL DAILY [History Confirmed 11/09/18] PMH/Surg Hx/FS Hx/Imm Hx Previously Healthy: Yes Respiratory History: Asthma Other Respiratory History: mild intermittent asthma - Surgical History Surgical History: Yes Surgery Procedure, Year, and Place: C-SECT - Family History Known Family History: Positive: None - Social History Occupation: Works From/At Home Lives: With Family Alcohol Use: None Substance Use Type: None Smoking Status (MU): Never Smoked Tobacco Review of Systems All Other Systems Reviewed And Are Negative: Yes Constitutional: Positive: Negative Skin: Positive: Negative Eyes: Positive: Negative ENT: Positive: Negative Respiratory: Positive: Negative Cardiovascular: Positive: Negative Gastrointestinal: Positive: Diarrhea, Nausea Genitourinary: Positive: Negative Motor: Positive: Negative Neurovascular: Positive: Negative Musculoskeletal: Positive: Negative Neurological: Positive: Negative Psychological: Positive: Negative Is Patient Immunocompromised?: No Physical Exam Triage Information Reviewed: Yes Appearance: Well-Appearing, No Pain Distress, Well-Nourished Vital Signs: Initial Vital Signs Temp 98.6 F 11/09/18 17:38 Pulse 73 11/09/18 17:38 Resp 16 11/09/18 17:38 BP 143/65 11/09/18 17:38 Pulse Ox 100 11/09/18 17:38 Vital Signs Reviewed: Yes Eye Exam: Normal Eyes: Positive: Conjunctiva Clear ENT Exam: Normal ENT: Positive: Normal ENT inspection, Hearing grossly normal, Pharynx normal, TMs normal, Uvula midline. Negative: Nasal congestion, Trismus, Muffled voice, Hoarse voice, Dental tenderness, Sinus tenderness Dental Exam: Normal Neck exam: Normal Neck: Positive: Supple, Nontender, No Lymphadenopathy Respiratory Exam: Normal Respiratory: Positive: Chest non-tender, Lungs clear, Normal breath sounds, No respiratory distress, No accessory muscle use Cardiovascular Exam: Normal Cardiovascular: Positive: RRR, No Murmur, Pulses Normal, Brisk Capillary Refill Abdominal Exam: Normal Abdomen Description: Positive: Nontender, No Organomegaly, Soft. Negative: CVA Tenderness (R), CVA Tenderness (L), Distended, Guarding, McBurney's Point Tenderness Bowel Sounds: Positive: Present Musculoskeletal Exam: Normal Musculoskeletal: Positive: Strength Intact, ROM Intact, No Edema Neurological Exam: Normal Neurological: Positive: Alert, Muscle Tone Normal Psychological Exam: Normal Skin Exam: Normal Abd Pain Female Course/Dx - Course Course Of Treatment: zofran advance diet as tolerated-stool kit and sample follow with pcp if sympoms fail to resolve - Differential Dx/Diagnosis Provider Diagnosis: Acute diarrhea Discharge - Sign-Out/Discharge Documenting (check all that apply): Patient Departure All imaging exams completed and their final reports reviewed: No Studies - Discharge Plan Condition: Stable Disposition: HOME Prescriptions: Ondansetron ODT TAB* [Zofran 4 MG Odt TAB*] 4 mg PO Q6H PRN #8 tab.odt PRN Reason: nausea/vomiting Patient Education Materials: Acute Nausea and Vomiting (ED), Acute Diarrhea (ED ), Nutrition Tips for Relief of Diarrhea (ED) Referrals: Emperatriz Chu, INESSA [Primary Care Provider] - 2 Days - Billing Disposition and Condition Condition: STABLE Disposition: Home - Attestation Statements Provider Attestation: Per institutional requirements, I have reviewed the chart, however, I was not consulted specifically or made aware of this patient by the midlevel provider. I did not personally evaluate, interact with , or disposition this patient.
== END 2018-11-09 18:55 | disposition home or self-care (01) ==
LOC: UCEAST 17:31
DX: R19.7 Diarrhea, unspecified (principal); J45.20 Mild intermittent asthma, uncomplicated; Z88.8 Allergy status to other drugs, medicaments and biological substances; Z88.1 Allergy status to other antibiotic agents
CPT/HCPCS: 99212; A9270-GY; G0463